=== PATIENT | male | born 1950 | race Caucasian/White ===

== ENCOUNTER → 2024-05-07 08:21 | Outpatient (REF) | payer OTHER, SELFPAY | LOC: RCS 08:21 | PROVIDERS: ATTENDING PHYSICIAN Internal Medicine | DX: R00.1 Bradycardia, unspecified (principal) | CPT/HCPCS: 93225; 93226 ==

== ENCOUNTER → 2025-05-20 07:31 | Outpatient (REF) | payer OTHER, SELFPAY | LOC: HWRAD 07:31 | PROVIDERS: ATTENDING PHYSICIAN Internal Medicine | DX: M81.0 Age-related osteoporosis without current pathological fracture (principal) | CPT/HCPCS: 77080 ==